=== PATIENT | female | born 1995 | race Caucasian/White ===

== ENCOUNTER 2019-08-24 12:03 | Emergency (ER) | payer OTHER ==
[2019-08-24] MEDS ORDERED: Sodium Chloride 0.9% 10 ML Syringe FLUSH PRN (12:16)
[2019-08-24] MEDS ORDERED: LORazepam 2 MG/ML SDV IVPUSH ONE (12:16)
[2019-08-24] MEDS ORDERED: Lactated Ringers 1,000 ML IV ONE (12:16)
[2019-08-24] MEDS ORDERED: Sodium Chloride 0.9% 2.5 ML Syringe FLUSH PRN (12:16)
--- NOTE | 2019-08-24 12:21 | EDM.PDOC ---
ED [facility] GENERAL MEDICAL PROBLEM - General Chief Complaint: General Stated Complaint: BLURRED VISION; DIZZINESS Time Seen by Provider: 08/24/19 12:04 - History of Present Illness INITIAL COMMENTS - FREE TEXT/NARRATIVE: HISTORY AND PHYSICAL: History of present illness: This 24-year-old female was recently diagnosed with ovarian cancer and had a large resection that was done on August 14 and the patient was discharged on Tuesday. Today she began having some intermittent lightheadedness while standing up, visual changes, but had been wearing a scopolamine patch. She also has increased tenderness in her abdomen. No nausea or vomiting. No reported fevers. No urinary symptoms. Worse with walking. Better with laying down. Review of systems: A 10-point review of systems, other than pertinent positives and negatives as stated per HPI, is otherwise negative. Past medical history: As per history of present illness and as reviewed below otherwise noncontributory. Surgical history: As per history of present illness and as reviewed below otherwise noncontributory. Social history: No reported history of drug or alcohol abuse. Family history: As per history of present illness and as reviewed below otherwise noncon tributory. Physical exam: VITAL SIGNS: Reviewed. GENERAL: Mild distress HEAD: No signs of head trauma. EYES: Pupils are equal. Extraocular motions intact. EARS: Hearing grossly intact. MOUTH: Oropharynx is normal. NECK: No adenopathy, no JVD. CHEST: Chest with clear breath sounds bilaterally. No wheezes, rales, or rhonchi. CARDIAC: Mild tachycardia. Regular rhythm. No discernible murmur. VASCULAR: Peripheral pulses normal and equal in all extremities. ABDOMEN: Soft, mild diffuse tenderness, surgical incision is clean dry and intact. MUSCULOSKELETAL: Good range of motion of all major joints. Extremities without clubbing, cyanosis or edema. NEUROLOGIC EXAM: Alert and oriented x 3. No focal sensory or motor deficits. Speech normal. Follows commands. PSYCHIATRIC: Mood normal. SKIN: No rash or lesions. Initial Differential Diagnosis & Plan: Intra-abdominal abscess, succus leakage, hematoma, seroma, bacteremia Labs to include CBC, complete metabolic panel, lactate, blood cultures, treat her mild nausea with Ativan. She is allergic to phenothiazines and reports that Zofran usually does not work. Definitive disposition and diagnosis as appropriate pending reevaluation and review of above. - Related Data Allergies Allergy/AdvReac Type Severity Reaction Status Date / Time prochlorperazine Allergy Other Verified 08/24/19 12:20 [From Compazine] Home Meds: Home Meds Enoxaparin [Lovenox] 40 mg SUBCUT DAILY 08/24/19 [History] HYDROmorphone [Dilaudid] 2 mg PO ASDIRECTED 08/24/19 [History] ED ROS GENERAL - Review of Systems Review Of Systems: See Below (Noted) ED EXAM, GENERAL - Physical Exam Exam: See Below (Noted as above) Course - Vital Signs Text/Narrative:: I spoke to the surgery team from [facility], specifically the PA, and she was reassured by the exam. The patient has good follow-up and she does not feel that the patient needs to go for immediate follow-up to [place]. I feel that this is reasonable. The CT does not show evidence of intra-abdominal abscess. The patient does have ascites which would be expected after this radical type surgery. There is no other underlying pathology that was unexpected. The surgery team will review this closely. We will provide a CD of the CT scan for their review. I will also fax the records to the surgical office including my note. My diagnostic impression 1. Dizziness likely secondary to scopolamine patch 2. Ascites postoperative likely secondary to normal inflammatory reaction 3. New liver lesion unclear if this represents infection versus malignancy. Given that the patient has no evidence of infectious findings including a normal white count, lack of fever, and no significant tachycardia I do not feel that this represents infection that requires antibiotics at this point. 4. History of ovarian cancer with radical resection in the abdomen. Discharge home follow-up with surgical team and oncology. Last Recorded V/S: Last Vital Signs Temp 97.8 F 08/24/19 12:17 Pulse 82 08/24/19 12:17 Resp 18 08/24/19 12:17 BP 111/78 08/24/19 12:17 Pulse Ox 97 08/24/19 12:17 - Orders/Labs/Meds Orders: Active Orders 24 hr Category Date Time Status Cardiac Monitoring [RC] . DIRECTED Care 08/24/19 12:17 Active Pulse Oximetry [RC] ASDIRECTED Care 08/24/19 12:17 Active CULTURE BLOOD [BC] Stat Lab 08/24/19 12:49 Received CULTURE BLOOD [BC] Stat Lab 08/24/19 12:52 Received Sodium Chloride 0.9% [Saline Flush] Med 08/24/19 12:16 Active 10 ml FLUSH ASDIRECTED PRN Sodium Chloride 0.9% [Saline Flush] Med 08/24/19 12:16 Active 2.5 ml FLUSH ASDIRECTED PRN Blood Culture x2 Reflex Set [OM.PC] Stat Ot 08/24/19 12:17 Ordered Saline Lock Insert [OM.PC] Stat Ot 08/24/19 12:16 Ordered Medication Orders Sodium Chloride (Saline Flush) 10 ml FLUSH ASDIRECTED PRN PRN Reason: Keep Vein Open Last Admin: 08/24/19 12:35 Dose: 10 ml Documented by: MARIIA Sodium Chloride (Saline Flush) 2.5 ml FLUSH ASDIRECTED PRN PRN Reason: Keep Vein Open Last Admin: 08/24/19 12:35 Dose: 2.5 ml Documented by: MARIIA Labs: Laboratory Tests 08/24/19 08/24/19 08/24/19 Range/Units 12:18 12:36 12:36 WBC 8.66 (4.0-11.0) K/uL RBC 4.06 L (4.30-5.90) M/uL Hgb 12.3 (12.0-16.0) g/dL Hct 36.4 (36.0-46.0) % MCV 89.7 (80.0-98.0) fL MCH 30.3 (27.0-32.0) pg MCHC 33.8 (31.0-37.0) g/dL RDW Std Deviation 43.4 (28.0-62.0) fl RDW Coeff of Cori 14 (11.0-15.0) % Plt Count 375 (150-400) K/uL MPV 9.20 (7.40-12.00) fL Neut % (Auto) 66.3 (48.0-80.0) % Lymph % (Auto) 17.4 (16.0-40.0) % [place] % (Auto) 8.2 (0.0-15.0) % Eos % (Auto) 7.6 H (0.0-7.0) % Baso % (Auto) 0.5 (0.0-1.5) % Neut # (Auto) 5.7 (1.4-5.7) K/uL Lymph # (Auto) 1.5 (0.6-2.4) K/uL [place] # (Auto) 0.7 (0.0-0.8) K/uL Eos # (Auto) 0.7 (0.0-0.7) K/uL Baso # (Auto) 0.0 (0.0-0.1) K/uL Nucleated RBC % 0.0 /100WBC Nucleated RBCs # 0 K/uL INR Lactate 0.9 (0.20-2.00) mmol/L Sodium (136-145) mmol/L Potassium (3.5-5.1) mmol/L Chloride (98-107) mmol/L Carbon Dioxide (21.0-32.0) mmol/L BUN (7.0-18.0) mg/dL Creatinine (0.6-1.0) mg/dL Est Cr Clr Drug Dosing mL/min Estimated GFR (MDRD) ml/min Glucose (74-106) mg/dL Calcium (8.5-10.1) mg/dL Total Bilirubin (0.2-1.0) mg/dL AST (15-37) IU/L ALT (14-63) IU/L Alkaline Phosphatase (46-116) U/L Total Protein (6.4-8.2) g/dL Albumin (3.4-5.0) g/dL Globulin (2.6-4.0) g/dL Albumin/Globulin Ratio (0.9-1.6) Urine Color YELLOW Urine Appearance CLEAR Urine pH 6.0 (5.0-8.0) Ur Specific [place] 1.020 (1.001-1.035) Urine Protein NEGATIVE (NEGATIVE) mg/dL Urine Glucose (UA) NEGATIVE (NEGATIVE) mg/dL Urine Ketones NEGATIVE (NEGATIVE) mg/dL Urine Occult Blood NEGATIVE (NEGATIVE) Urine Nitrite NEGATIVE (NEGATIVE) Urine Bilirubin NEGATIVE (NEGATIVE) Urine Urobilinogen 0.2 (<2.0) EU/dL Ur Leukocyte Esterase NEGATIVE (NEGATIVE) 08/24/19 08/24/19 Range/Units 12:36 12:36 WBC (4.0-11.0) K/uL RBC (4.30-5.90) M/uL Hgb (12.0-16.0) g/dL Hct (36.0-46.0) % MCV (80.0-98.0) fL MCH (27.0-32.0) pg MCHC (31.0-37.0) g/dL RDW Std Deviation (28.0-62.0) fl RDW Coeff of Cori (11.0-15.0) % Plt Count (150-400) K/uL MPV (7.40-12.00) fL Neut % (Auto) (48.0-80.0) % Lymph % (Auto) (16.0-40.0) % [place] % (Auto) (0.0-15.0) % Eos % (Auto) (0.0-7.0) % Baso % (Auto) (0.0-1.5) % Neut # (Auto) (1.4-5.7) K/uL Lymph # (Auto) (0.6-2.4) K/uL [place] # (Auto) (0.0-0.8) K/uL Eos # (Auto) (0.0-0.7) K/uL Baso # (Auto) (0.0-0.1) K/uL Nucleated RBC % /100WBC Nucleated RBCs # K/uL INR 1.00 Lactate (0.20-2.00) mmol/L Sodium 143 (136-145) mmol/L Potassium 3.6 (3.5-5.1) mmol/L Chloride 103 (98-107) mmol/L Carbon Dioxide 26.2 (21.0-32.0) mmol/L BUN 9 (7.0-18.0) mg/dL Creatinine 0.8 (0.6-1.0) mg/dL Est Cr Clr Drug Dosing 107.26 mL/min Estimated GFR (MDRD) > 60.0 ml/min Glucose 92 (74-106) mg/dL Calcium 9.3 (8.5-10.1) mg/dL Total Bilirubin 0.6 (0.2-1.0) mg/dL AST 33 (15-37) IU/L ALT 64 H (14-63) IU/L Alkaline Phosphatase 58 (46-116) U/L Total Protein 7.6 (6.4-8.2) g/dL Albumin 3.9 (3.4-5.0) g/dL Globulin 3.7 (2.6-4.0) g/dL Albumin/Globulin Ratio 1.1 (0.9-1.6) Urine Color Urine Appearance Urine pH (5.0-8.0) Ur Specific [place] (1.001-1.035) Urine Protein (NEGATIVE) mg/dL Urine Glucose (UA) (NEGATIVE) mg/dL Urine Ketones (NEGATIVE) mg/dL Urine Occult Blood (NEGATIVE) Urine Nitrite (NEGATIVE) Urine Bilirubin (NEGATIVE) Urine Urobilinogen (<2.0) EU/dL Ur Leukocyte Esterase (NEGATIVE) Meds: Medications Generic Name Dose Route Start Last Admin Trade Name Freq PRN Reason Stop Dose Admin Sodium Chloride 10 ml 08/24/19 12:16 08/24/19 12:35 Saline Flush FLUSH 10 ml ASDIRECTED PRN Administration Keep Vein Open Sodium Chloride 2.5 ml 08/24/19 12:16 08/24/19 12:35 Saline Flush FLUSH 2.5 ml ASDIRECTED PRN Administration Keep Vein Open Discontinued Medications Generic Name Dose Route Start Last Admin Trade Name Freq PRN Reason Stop Dose Admin Lactated Ringer's 1,000 mls @ 999 mls/hr 08/24/19 12:16 08/24/19 12:34 Ringers, Lactated IV 08/24/19 13:16 999 mls/hr .BOLUS ONE Administration Lorazepam 1 mg 08/24/19 12:16 08/24/19 12:35 Ativan IVPUSH 08/24/19 12:17 1 mg ONETIME ONE Administration Departure - Departure Time of Disposition: 15:06 Disposition: Home, Self-Care 01 Condition: Good Clinical Impression: Ascites, Pleural effusion, right, History of ovarian cancer, Liver lesion - Discharge Information *PRESCRIPTION DRUG MONITORING PROGRAM REVIEWED*: Not Applicable *COPY OF PRESCRIPTION DRUG MONITORING REPORT IN PATIENT EFREN: Not Applicable Instructions: Pleural Effusion, Ascites, Ovarian Tumors Referrals: PCP,Not In Area [Primary Care Provider] - Forms: ED Department Discharge Additional Instructions: The following information is given to patients seen in the emergency department who are being discharged to home. This information is to outline your options for follow-up care. We provide all patients seen in our emergency department with a follow-up referral. The need for follow-up, as well as the timing and circumstances, are variable depending upon the specifics of your emergency department visit. If you don't have a primary care physician on staff, we will provide you with a referral. We always advise you to contact your personal physician following an emergency department visit to inform them of the circumstance of the visit and for follow-up with them and/or the need for any referrals to a consulting specialist. The emergency department will also refer you to a specialist when appropriate. This referral assures that you have the opportunity for follow-up care with a specialist. All of these measure are taken in an effort to provide you with optimal care, which includes your follow-up. Thank you for coming to the [facility] urgency department for your care today. It was Dr. Salinas's pleasure to take care of you. Please follow-up with your surgeon as arranged and your oncology team. Please return the emergency department for fever, worsening, or any other concerns. Please make sure to address your new findings with your oncology and surgical team. Under all circumstances we always encourage you to contact your private physician who remains a resource for coordinating your care. When calling for follow-up care, please make the office aware that this follow-up is from your recent emergency room visit. If for any reason you are refused follow-up, please contact the [facility] Emergency Department at and asked to speak to the emergency department charge nurse. Sepsis Event Note (ED) - Focused Exam Vital Signs: Vital Signs Temp Pulse Resp BP Pulse Ox 08/24/19 12:17 97.8 F 82 18 111/78 97 - My Orders Last 24 Hours: My Active Orders 08/24/19 12:16 Sodium Chloride 0.9% [Saline Flush] 10 ml FLUSH ASDIRECTED PRN Sodium Chloride 0.9% [Saline Flush] 2.5 ml FLUSH ASDIRECTED PRN Saline Lock Insert [OM.PC] Stat 08/24/19 12:17 Cardiac Monitoring [RC] . DIRECTED Pulse Oximetry [RC] ASDIRECTED Blood Culture x2 Reflex Set [OM.PC] Stat 08/24/19 12:49 CULTURE BLOOD [BC] Stat 08/24/19 12:52 CULTURE BLOOD [BC] Stat - Assessment/Plan Last 24 Hours: My Active Orders 08/24/19 12:16 Sodium Chloride 0.9% [Saline Flush] 10 ml FLUSH ASDIRECTED PRN Sodium Chloride 0.9% [Saline Flush] 2.5 ml FLUSH ASDIRECTED PRN Saline Lock Insert [OM.PC] Stat 08/24/19 12:17 Cardiac Monitoring [RC] . DIRECTED Pulse Oximetry [RC] ASDIRECTED Blood Culture x2 Reflex Set [OM.PC] Stat 08/24/19 12:49 CULTURE BLOOD [BC] Stat 08/24/19 12:52 CULTURE BLOOD [BC] Stat
[2019-08-24 13:09] LABS: BLOOD UREA NITROGEN,BUN 9 mg/dL (7.0-18.0); CARBON DIOXIDE,CO2 26.2 mmol/L (21.0-32.0); CHLORIDE,CL 103 mmol/L (98-107); GLUCOSE RANDOM 92 mg/dL (74-106); POTASSIUM,K 3.6 mmol/L (3.5-5.1); SODIUM,NA 143 mmol/L (136-145)
--- NOTE | 2019-08-24 14:48 | CT ---
CT abdomen and pelvis Technique: Multiple axial sections were obtained from above the dome of the diaphragm inferiorly through the pubic symphysis. Intravenous contrast was utilized. No oral contrast has been given. Comparison: Previous CT abdomen and pelvis study of 08/06/19. Findings: Small right-sided pleural effusion is seen. Minimal bibasilar atelectasis is noted. Small amount of fluid is seen around the liver and spleen with more confluent ascites within the pelvis. Low density lesion noted within the dome of the right lobe of the liver. This is not appreciated even in retrospect on prior exam. This abnormality measures about 3.7 cm. Since this appears as an interval change from previous exam, difficult to exclude liver metastasis or liver abscess. No additional liver abnormality is appreciated. Spleen appears normal. Adrenal glands show no nodule. Pancreas is within normal limits. Gallbladder shows no calcified gallstones. Adrenal glands show no nodule. Kidneys show symmetric contrast enhancement without hydronephrosis or mass. Aorta shows no aneurysm. No retroperitoneal adenopathy or mesenteric abnormalities are seen. Previous right ovarian mass is no longer seen presumably from previous resection. Bone window settings were reviewed which shows no acute osseous finding. Impression: 1. Small right-sided pleural effusion with mild bibasilar atelectasis. 2. 3.7 cm low density lesion within the dome of the right lobe of the liver not seen on previous CT exams. Difficult to exclude liver metastasis or liver abscess. 3. Mild amount of fluid around the liver and spleen with more confluent ascites within the pelvis. 4. No additional abnormality is appreciated. Diagnostic code #9 This report was dictated in MDT
[2019-08-24] MEDS ORDERED: Iopamidol 755 MG/ML 500 ML Multipack Bottle IVPUSH STA (18:49)
== END 2019-08-24 15:29 | disposition home or self-care (01) ==
LOC: MW.ED 12:03
DX: R18.8 Other ascites (principal); K76.9 Liver disease, unspecified; J90 Pleural effusion, not elsewhere classified; Z85.43 Personal history of malignant neoplasm of ovary; Z88.8 Allergy status to other drugs, medicaments and biological substances; Z79.899 Other long term (current) drug therapy
CPT/HCPCS: 36415; 74177; 80053; 81003; 83605; 85025; 85610; 87040; 96361; 96374; 99284; J2060; J7120; Q9967

== ENCOUNTER 2019-08-30 08:30 | Day surgery (SDC) | payer OTHER ==
[~2019-08-30 08:30] MED LIST: Bupivacaine 0.5% 10 ML SDV ONE; Glycopyrrolate 0.2 MG/ML SDV ONE; Heparin Sodium 100 Units/ML 3 ML Syringe ONE; Iopamidol 200-M 10 ML vial ITHECAL ONE; Ketorolac 30 MG/ML SDV ONE; Lactated Ringers 1,000 ML IV SCH; Lidocaine 2% 5 ML SDV ONE; Midazolam 1 MG/ML 2 ML SDV ONE; Octyl 2-Cyanoacrylate 1 Tube ONE; Ondansetron 4 MG/2 ML SDV ONE; Propofol 200 MG/20 ML SDV ONE; Sodium Chloride 0.9% 10 ML SDV IV PRN; Sodium Chloride 0.9% 10 ML Syringe FLUSH PRN; Sodium Chloride 0.9% 2.5 ML Syringe FLUSH PRN; ceFAZolin 2 GM in Premix Bag 1 BAG IV ONE; fentaNYL 100 MCG/2 ML SDV ONE
--- NOTE | 2019-08-30 08:57 | PCM.PREANE ---
Preanesthetic Assessment - Anesthesia/Transfusion/Family Hx Anesthesia History: Prior Anesthesia Without Reaction Family History of Anesthesia Reaction: No Transfusion History: No Prior Transfusion(s) Intubation History: Unknown - Review of Systems General: No Symptoms Pulmonary: No Symptoms Cardiovascular: No Symptoms Gastrointestinal: No Symptoms Neurological: No Symptoms Other: Reports: None - Physical Assessment Height: 5 ft 7 in Weight: 62.596 kg ASA Class: 2 Mental Status: Alert & Oriented x3 Airway Class: Mallampati = 1 Dentition: Reports: Normal Dentition Thyro-Mental Finger Breadths: 3 Mouth Opening Finger Breadths: 3 ROM/Head Extension: Full Lungs: Clear to Auscultation, Normal Respiratory Effort Cardiovascular: Regular Rate, Regular Rhythm - Allergies Allergies/Adverse Reactions: Allergies Allergy/AdvReac Type Severity Reaction Status Date / Time prochlorperazine Allergy Other Verified 08/27/19 13:16 [From Compazine] - Blood Blood Available: No - Anesthesia Plan Pre-Op Medication Ordered: None - Acknowledgements Anesthesia Type Planned: General Anesthesia Pt an Appropriate Candidate for the Planned Anesthesia: Yes Alternatives and Risks of Anesthesia Discussed w Pt/Guardian: Yes Pt/Guardian Understands and Agrees with Anesthesia Plan: Yes PreAnesthesia Questionnaire HEENT History: Reports: None Cardiovascular History: Reports: None Respiratory History: Reports: None Gastrointestinal History: Reports: None Genitourinary History: Reports: None MUSIC JOURNALIST History: Reports: Other (See Below) Other OB/BYN History: recent diagnosis of ovarian cancer Musculoskeletal History: Reports: None Neurological History: Reports: None Psychiatric History: Reports: None Endocrine/Metabolic History: Reports: None Hematologic History: Reports: Anticoagulation Therapy Immunologic History: Reports: None Oncologic (Cancer) History: Reports: Ovarian Other Oncologic History: Dystoma.... Cancer. Dermatologic History: Reports: None - Past Surgical History Head Surgeries/Procedures: Reports: None HEENT Surgical History: Reports: Tonsillectomy Cardiovascular Surgical History: Reports: None Respiratory Surgical History: Reports: None GI Surgical History: Reports: None Female Surgical History: Reports: Other (See Below) Other Female Surgeries/Procedures: exploratory laparotomy with clair salpingectomy & "1 1/2 ovary removed" in [place] on 08/14/19 Endocrine Surgical History: Reports: None Neurological Surgical History: Reports: None Musculoskeletal Surgical History: Reports: None Oncologic Surgical History: Reports: Other (See Below) Other Oncologic Surgeries/Procedures: exploratory laparotomy 08/14/19 Dermatological Surgical History: Reports: None - SUBSTANCE USE Smoking Status *Q: Never Smoker - HOME MEDS Home Medications: Home Meds Enoxaparin [Lovenox] 40 mg SUBCUT DAILY 08/24/19 [History] HYDROmorphone [Dilaudid] 2 mg PO ASDIRECTED PRN 08/24/19 [History] Acetaminophen [Tylenol Extra Strength] 2 tab PO ASDIRECTED PRN 08/27/19 [History] Ibuprofen 1 tab PO ASDIRECTED PRN 08/27/19 [History] - CURRENT (IN HOUSE) MEDS Current Meds: Current Medications Lactated Ringer's (Ringers, Lactated) 1,000 mls @ 125 mls/hr IV ASDIRECTED GUMARO Sodium Chloride (Saline Flush) 10 ml FLUSH ASDIRECTED PRN PRN Reason: Keep Vein Open Sodium Chloride (Saline Flush) 2.5 ml FLUSH ASDIRECTED PRN PRN Reason: Keep Vein Open Sodium Chloride (Normal Saline) 10 ml IV ASDIRECTED PRN PRN Reason: IV Use Discontinued Medications Bupivacaine HCl (Sensorcaine-Mpf 0.5%) Confirm Administered Dose 10 ml .ROUTE .STK-MED ONE Stop: 08/30/19 07:29 Fentanyl (Sublimaze) Confirm Administered Dose 100 mcg .ROUTE .STK-MED ONE Stop: 08/30/19 07:01 Glycopyrrolate (Robinul) Confirm Administered Dose 0.2 mg .ROUTE .STK-MED ONE Stop: 08/30/19 07:03 Heparin Sodium (Porcine) (Heparin Lock Flush 100 Units/Ml) Confirm Administered Dose 300 unit .ROUTE .STK-MED ONE Stop: 08/30/19 07:30 Cefazolin Sodium/Dextrose 2 gm (/ Premix) 50 mls @ 100 mls/hr IV ONETIME ONE Stop: 08/29/19 10:04 Iopamidol (Isovue-M 200) Confirm Administered Dose 10 ml ITHECAL .STK-MED ONE Stop: 08/30/19 07:30 Ketorolac Tromethamine (Toradol) Confirm Administered Dose 30 mg .ROUTE .STK-MED ONE Stop: 08/30/19 07:03 Lidocaine (Xylocaine-Mpf 2%) Confirm Administered Dose 5 ml .ROUTE .STK-MED ONE Stop: 08/30/19 07:03 Lidocaine HCl (Xylocaine-Mpf 1%) Confirm Administered Dose 10 ml .ROUTE .STK-MED ONE Stop: 08/30/19 07:30 Midazolam HCl (Versed 1 Mg/Ml) Confirm Administered Dose 2 mg .ROUTE .STK-MED ONE Stop: 08/30/19 07:02 Octyl Cyanoacrylate (Dermabond Advance) Confirm Administered Dose 1 applic .ROUTE .STNaHere-MED ONE Stop: 08/30/19 07:30 Ondansetron HCl (Zofran) Confirm Administered Dose 4 mg .ROUTE .STK-MED ONE Stop: 08/30/19 07:03 Propofol (Diprivan 20 Ml) Confirm Administered Dose 200 mg .ROUTE .STNaHere-MED ONE Stop: 08/30/19 07:01
[2019-08-30] MEDS ORDERED: ceFAZolin/Dextrose,Iso-Osmotic 2 GM/50 ML Duplex Bag IV ONE (09:27)
[2019-08-30] MEDS ORDERED: fentaNYL 100 MCG/2 ML SDV IVPUSH PRN (09:27)
[2019-08-30] MEDS ORDERED: Acetaminophen 1,000 MG in Premix Bag 1 BAG IV PRN (09:27)
[2019-08-30] MEDS ORDERED: Dexamethasone 4 MG/ML 5 ML MDV ONE (10:47)
--- NOTE | 2019-08-30 11:45 | PCM.OPNOTE ---
- General Post-Op/Procedure Note Date of Surgery/Procedure: 08/30/19 Operative Procedure(s): Right internal jugular port a cath Findings: Right IJ port Pre Op Diagnosis: Ovarian cancer Post-Op Diagnosis: Ovarian cancer Anesthesia Technique: General LMA Primary Surgeon: Lorraine Mckee Fluid Replacement, Intraop: 1,300 EBL in mLs: 10 Condition: Good
--- NOTE | 2019-08-30 12:23 | PCM.POSTAN ---
POST ANESTHESIA ASSESSMENT - MENTAL STATUS Mental Status: Alert, Oriented - VITAL SIGNS Vital Signs: Last Vital Signs Temp 36.2 C 08/30/19 11:38 Pulse 87 08/30/19 11:59 Resp 14 08/30/19 11:59 BP 109/85 08/30/19 11:59 Pulse Ox 99 08/30/19 11:59 - RESPIRATORY Respiratory Status: Respiratory Rate WNL, Airway Patent, O2 Saturation Stable - CARDIOVASCULAR CV Status: Pulse Rate WNL, Blood Pressure Stable - GASTROINTESTINAL GI Status: No Symptoms - PAIN Pain Score: 0 - POST OP HYDRATION Hydration Status: Adequate & Stable - OBSERVATIONS Free Text/Narrative:: No anesthesia problems
--- NOTE | 2019-08-30 12:36 | CR ---
Chest: Portable view of the chest was obtained. Comparison: No prior chest x-ray, prior chest CT of 08/08/19. Heart size and mediastinum are normal. Right-sided infusion port is seen. Lungs are clear with no acute parenchymal change. Bony structures are grossly intact. Impression: 1. Nothing acute is seen on portable chest x-ray. Diagnostic code #2 This report was dictated in MDT
[2019-08-30] MEDS ORDERED: Heparin Sodium 100 Units/ML 3 ML Syringe ONE (12:38)
--- NOTE | 2019-08-30 12:48 | PCM48HPAN ---
Post Anesthesia Note - EVALUATION WITHIN 48HRS OF ANESTHETIC Vital Signs in Normal Range: Yes Patient Participated in Evaluation: Yes Respiratory Function Stable: Yes Airway Patent: Yes Cardiovascular Function Stable: Yes Hydration Status Stable: Yes Pain Control Satisfactory: Yes Nausea and Vomiting Control Satisfactory: Yes Mental Status Recovered: Yes Vital Signs: Last Vital Signs Temp 36.2 C 08/30/19 11:38 Pulse 87 08/30/19 11:59 Resp 14 08/30/19 11:59 BP 109/85 08/30/19 11:59 Pulse Ox 99 08/30/19 11:59 - COMMENTS/OBSERVATIONS Free Text/Narrative:: No anesthesia problems
--- NOTE | 2019-08-30 16:50 | OR ---
SURGEON: LORRAINE MCKEE MD DATE OF PROCEDURE: 08/30/2019 PREOPERATIVE DIAGNOSIS: Ovarian cancer. POSTOPERATIVE DIAGNOSIS: Ovarian cancer. PROCEDURE PERFORMED: Right internal jugular Port-A-Cath placement. PRIMARY SURGEON: Lorraine Mckee MD ANESTHESIA: General LMA. FLUIDS: 1300 mL of crystalloid. ESTIMATED BLOOD LOSS: 10 mL. FINDINGS: Right internal jugular Port-A-Cath placement. COMPLICATIONS: None. INDICATIONS: The patient is a 24-year-old female who was recently diagnosed with stage III ovarian cancer. The patient will be undergoing chemotherapy and is in need of a centralized access. The patient and I discussed the Port-A-Cath procedure, expected perioperative course, and the risks including bleeding, infection, or damage to surrounding structures including pneumothorax, hemothorax, and/or cardiac tamponade. The patient verbalized understanding and wishes to proceed. PROCEDURE IN DETAIL: The patient was met in the OR and placed on the OR table in supine position. A time-out was completed verifying the patient's name, age, date of , allergies, and procedure to be performed. General LMA anesthesia was induced. I identified the vascular anatomy of the right side of the neck. I identified the right internal jugular vein and the associated right carotid artery. The arms were tucked to the patient's side and a shoulder roll placed under the shoulders. The neck and chest were prepped and draped in usual standard fashion. I reidentified the vascular anatomy of the right side of the neck using a sterile ultrasound probe with the patient placed into Trendelenburg position. I identified the right internal jugular vein. I anesthetized the skin overlying the right internal jugular vein with a 1:1 mixture of 0.5% Marcaine plain and 1% lidocaine plain. I also anesthetized my catheter tubing tract and my port site on the chest wall with the same mixture. Using ultrasound guidance, I placed a guide needle into the right internal jugular vein. I obtained an immediate return of venous blood. A guidewire was placed down the needle into the chest. Fluoroscopy showed that the catheter tubing had went from the right internal jugular vein into the subclavian vein. This was pulled back and guided into the superior vena cava. The guidewire was then secured to the drapes, and I turned my attention to the right upper chest wall. Three fingerbreadths below the right lateral clavicle, I made a 4 cm incision with a 15 blade. Cautery was used to dissect down to the level of subcutaneous fat and a subcutaneous chest wall pocket was then created. A tunneling device was used to tunnel the catheter tubing from the port site up over the clavicle to the guidewire site on the neck. Vascular dilator and sheath were then placed over the guidewire. Using fluoroscopic guidance, I dilated up the vascular tract. The dilator and guidewire were removed, and the catheter tubing was placed down the sheath, into the superior vena cava. The sheath was then peeled away. Using fluoroscopy, I then pulled the catheter tubing back to the level of the atriocaval junction. I aspirated the end of my catheter and obtained a good return of venous blood. X-ray was taken of the catheter tubing in the chest as well as up in the neck. These were saved into the patient's chart. The catheter tubing was then trimmed to fit and placed on the Port-A-Cath device. The port was placed into the chest wall and secured on either side with 2-0 Prolene sutures. It was then aspirated and had a good return of venous blood. It was locked with 4 mL of heparinized saline. The chest wall site was then closed with interrupted 3-0 Vicryl in the subcutaneous fat space and skin was closed with a running 4-0 Monocryl stitch. The neck insertion site was closed with interrupted 4-0 Monocryl suture. Dermabond and sterile dressings were applied. The patient tolerated the procedure well. All counts were complete and correct at the end of the case. She was extubated and taken to PACU in stable condition. A portable chest x-ray will be taken in the PACU. FRANCOISE KWONG /[id number]
--- NOTE | 2019-08-31 09:40 | CR ---
Chest: 2 fluoroscopic spot views were obtained of the chest utilizing C-arm device. Study shows placement of a Port-A-Cath. Tip of the catheter lies near the right atrial and superior vena cava junction. Fluoroscopy time given as 99.9 seconds Impression: 1. Procedural study as described above. Diagnostic code #2 This report was dictated in MDT
== END 2019-08-30 13:10 | disposition home or self-care (01) ==
LOC: MW.SDS 08:30
PROVIDERS: ATTEND Surgery
DX: C56.9 Malignant neoplasm of unspecified ovary (principal); Z88.8 Allergy status to other drugs, medicaments and biological substances
CPT/HCPCS: 36561; 71045; 76000; 81025; A9270; C1788; J0690; J1100; J1642; J1885; J2001; J2250; J2405; J2704; J3490; J7120; J3010; Q9966

== ENCOUNTER 2019-12-01 15:03 | Emergency (ER) | payer OTHER ==
[2019-12-01] MEDS ORDERED: Lidocaine/Prilocaine 2.5-2.5% Crm 5 GM Kit TOP ONE (15:36)
[2019-12-01] MEDS ORDERED: HYDROmorphone 1 MG/ML Syringe IVPUSH ONE (15:44)
[2019-12-01] MEDS ORDERED: Sodium Chloride 0.9% 1,000 ML IV ONE (15:44)
[2019-12-01] MEDS ORDERED: Alum Hydrox/Mag Hydrox/Simeth 15 ML, Metoclopramide 5 MG, Lidocaine 2% 5 ML PO ONE ×3 (15:44)
--- NOTE | 2019-12-01 16:25 | EDM.PDOC ---
ED HPI GENERAL MEDICAL PROBLEM - General Chief Complaint: Abdominal Pain Stated Complaint: ABDOMINAL PAIN Time Seen by Provider: 12/01/19 15:10 Source of Information: Reports: Patient History Limitations: Reports: No Limitations - History of Present Illness INITIAL COMMENTS - FREE TEXT/NARRATIVE: Presents with her mother reporting epigastric and chest pain. This unfortunate 22-year-old patient has stage III ovarian cancer. Underwent salpingectomy, oophorectomy, partial omenectomy. In August 2019 she started 4 cycles of chemotherapy, last on TuesdayNovember 25. She is saw her oncology providers on Tuesday, November 27 she was diagnosed with GERD after complaining of chest pain. Blood cultures were obtained. On , November 28 had a negative COVID-19 test. She reports that "saliva stanton all the way down", sharp burning pain midline chest and epigastric area, mouth sores. She has tried Mylanta, Gracie-Heavener. She vomited once a couple days ago but none since and has no nausea. He has been trying to keep hydrated, has eaten little food. She has Ativan and hydrocodone at home. Dr. Wells is her supervising oncologist at the [facility] cancer treatment center here in [place] where she receives her chemotherapy. Her mother Celine has been on speaker phone throughout the entire interview. abdomen Pain Score (Numeric/FACES): 8 - Related Data Allergies Allergy/AdvReac Type Severity Reaction Status Date / Time prochlorperazine Allergy Other Verified 12/01/19 15:28 [From Compazine] Home Meds: Home Meds Enoxaparin [Lovenox] 40 mg SUBCUT DAILY 08/24/19 [History] HYDROmorphone [Dilaudid] 2 mg PO ASDIRECTED PRN 08/24/19 [History] Acetaminophen [Tylenol Extra Strength] 2 tab PO ASDIRECTED PRN 08/27/19 [History] Ibuprofen 1 tab PO ASDIRECTED PRN 08/27/19 [History] HYDROmorphone [Dilaudid] 0.5 tab PO Q4H PRN 7 Days #20 tab 12/01/19 [Rx] Past Medical History HEENT History: Reports: None Cardiovascular History: Reports: None Respiratory History: Reports: None Gastrointestinal History: Reports: None Genitourinary History: Reports: None [employer] ADVIS[employer] History: Reports: Other (See Below) 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 Cancer. Dermatologic History: Reports: None - Past Surgical History Head Surgeries/Procedures: Reports: None HEENT Surgical History: Reports: Tonsillectomy Cardiovascular Surgical History: Reports: None Respiratory Surgical History: Reports: None GI Surgical History: Reports: None Female Surgical History: Reports: Other (See Below) Other Female Surgeries/Procedures: exploratory laparotomy with clair salpingectomy & "1 1/2 ovary removed" in [place] on 08/14/19 Endocrine Surgical History: Reports: None Neurological Surgical History: Reports: None Musculoskeletal Surgical History: Reports: None Oncologic Surgical History: Reports: Other (See Below) Other Oncologic Surgeries/Procedures: exploratory laparotomy 08/14/19 Dermatological Surgical History: Reports: None Social & Family History - Family History Family Medical History: Noncontributory - Tobacco Use Second Hand Smoke Exposure: No - Recreational Drug Use Recreational Drug Use: No ED ROS GENERAL - Review of Systems Review Of Systems: Comprehensive ROS is negative, except as noted in HPI. Constitutional: Reports: No Symptoms. Denies: Fever, Chills HEENT: Reports: No Symptoms Respiratory: Reports: No Symptoms. Denies: Shortness of Breath, Wheezing, Cough Cardiovascular: Reports: Chest Pain Endocrine: Reports: No Symptoms GI/Abdominal: Reports: Abdominal Pain (epigastric), Constipation (BM over 3 days ago) : Reports: No Symptoms Musculoskeletal: Reports: No Symptoms Skin: Reports: No Symptoms Neurological: Reports: No Symptoms Psychiatric: Reports: No Symptoms, Anxiety Hematologic/Lymphatic: Reports: No Symptoms Immunologic: Reports: No Symptoms ED EXAM, GI/ABD - Physical Exam Exam: See Below Exam Limited By: No Limitations General Appearance: Alert, No Apparent Distress Ears: Normal External Exam, Normal Canal, Normal TMs Nose: Normal Inspection Throat/Mouth: Normal Inspection, Normal Teeth, Other (Mild irritation posterior pharynx, no oral lesions, tissue in good repair) Neck: Normal Inspection, Lymphadenopathy (L) (Mild tenderness), Lymphadenopathy (R) (mild Tenderness) Respiratory/Chest: No Respiratory Distress, Lungs Clear, Normal Breath Sounds Cardiovascular: Normal Peripheral Pulses, Regular Rate, Rhythm, No Murmur GI/Abdominal Exam: Normal Bowel Sounds, Soft, Other (mild Epigastric) Back Exam: Normal Inspection Extremities: Normal Inspection Neurological: Alert, Oriented, Normal Cognition Psychiatric: Normal Affect, Normal Mood Skin Exam: Warm, Dry, Intact, No Rash, Other (Pale, chemotherapy-induced alopecia) Lymphatic: No Adenopathy #1 Interpretation EKG Date: 12/01/19 Rhythm: NSR [place]: Normal P-Wave: Present QRS: Normal ST-T: Normal QT: Prolonged (494) Comparison: NA - No Prior EKG Course - Vital Signs Last Recorded V/S: Last Vital Signs Temp 37.5 C 12/01/19 15:21 Pulse 85 12/01/19 18:40 Resp 16 12/01/19 18:40 BP 97/55 L 12/01/19 18:40 Pulse Ox 100 12/01/19 18:40 - Orders/Labs/Meds Orders: Active Orders 24 hr Category Date Time Status EKG 12 Lead [EKG Documentation Completion] [RC] STAT Care 12/01/19 15:43 Active Labs: Laboratory Tests 12/01/19 12/01/19 Range/Units 16:13 16:13 WBC 2.50 L (4.0-11.0) K/uL RBC 2.39 L (4.30-5.90) M/uL Hgb 7.2 L (12.0-16.0) g/dL Hct 20.3 L (36.0-46.0) % MCV 84.9 (80.0-98.0) fL MCH 30.1 (27.0-32.0) pg MCHC 35.5 (31.0-37.0) g/dL RDW Std Deviation 44.6 (28.0-62.0) fl RDW Coeff of Croi 14 (11.0-15.0) % Plt Count 78 L (150-400) K/uL MPV 10.30 (7.40-12.00) fL Neut % (Auto) 59.6 (48.0-80.0) % Lymph % (Auto) 26.0 (16.0-40.0) % [place] % (Auto) 12.4 (0.0-15.0) % Eos % (Auto) 0.4 (0.0-7.0) % Baso % (Auto) 1.6 H (0.0-1.5) % Neut # (Auto) 1.5 (1.4-5.7) K/uL Lymph # (Auto) 0.7 (0.6-2.4) K/uL [place] # (Auto) 0.3 (0.0-0.8) K/uL Eos # (Auto) 0.0 (0.0-0.7) K/uL Baso # (Auto) 0.0 (0.0-0.1) K/uL Nucleated RBC % 0.0 /100WBC Nucleated RBCs # 0 K/uL Sodium 135 L (136-145) mmol/L Potassium 3.4 L (3.5-5.1) mmol/L Chloride 99 (98-107) mmol/L Carbon Dioxide 28.0 (21.0-32.0) mmol/L BUN 13 (7.0-18.0) mg/dL Creatinine 0.8 (0.6-1.0) mg/dL Est Cr Clr Drug Dosing 103.47 mL/min Estimated GFR (MDRD) > 60.0 ml/min Glucose 87 (74-106) mg/dL Calcium 9.1 (8.5-10.1) mg/dL Total Bilirubin 0.7 (0.2-1.0) mg/dL AST 13 L (15-37) IU/L ALT 19 (14-63) IU/L Alkaline Phosphatase 57 (46-116) U/L Troponin I < 0.050 (0.000-0.056) ng/mL Total Protein 6.9 (6.4-8.2) g/dL Albumin 3.8 (3.4-5.0) g/dL Globulin 3.1 (2.6-4.0) g/dL Albumin/Globulin Ratio 1.2 (0.9-1.6) Meds: Medications Discontinued Medications Generic Name Dose Route Start Last Admin Trade Name Freq PRN Reason Stop Dose Admin Al Hydroxide/Mg Hydroxide 15 0 ml 12/01/19 15:44 12/01/19 16:16 ml/ Metoclopramide HCl 5 mg/ PO 12/01/19 15:45 1 each Lidocaine HCl 5 ml ONETIME ONE Administration Al Hydroxide/Mg Hydroxide 15 0 ml 12/01/19 18:22 12/01/19 19:05 ml/ Lidocaine HCl 5 ml PO 12/01/19 18:23 1 each ONETIME ONE Administration Hydromorphone HCl 1 mg 12/01/19 15:44 12/01/19 16:18 Dilaudid IVPUSH 12/01/19 15:45 1 mg ONETIME ONE Administration Sodium Chloride 1,000 mls @ 999 mls/hr 12/01/19 15:44 12/01/19 16:15 Normal Saline IV 12/01/19 16:44 999 mls/hr STAT ONE Administration Lidocaine/Prilocaine 1 gm 12/01/19 15:36 12/01/19 15:38 E[facility]a C[facility] TOP 12/01/19 15:37 1 gm ONETIME ONE Administration Lorazepam 1 mg 12/01/19 18:24 12/01/19 18:38 Ativan IVPUSH 12/01/19 18:25 1 mg ONETIME ONE Administration Ondansetron HCl 4 mg 12/01/19 16:49 12/01/19 17:04 Zofran IVPUSH 12/01/19 16:50 4 mg ONETIME ONE Administration - Re-Assessments/Exams Free Text/Narrative Re-Assessment/Exam: 12/01/19 1840 states that the GI cocktail helped and the Dilaudid helped. She is concerned about home as just taking a swallow of a smoothie caused burning pain down her chest and into her epigastric area. She states that at home a combination of Zofran and Ativan helps her nausea. Since we just gave her an Zofran she would like some Ativan. We will then give her another dose of cocktail and try oral fluids to be certain that she keeps them down. She is quite anemic status post chemotherapy. She states that she will follow up with oncology on Tuesday morning for possible transfusion. Free Text/Narrative Re-Assessment/Exam: 12/01/19 19:44 She states she is feeling much better now and is ready to go home. She milton erated the oral fluids after the GI cocktail and has not been nauseated since the Ativan. Departure - Departure Time of Disposition: 19:45 Disposition: Home, Self-Care 01 Condition: Fair Clinical Impression: Esophagitis Gastritis Qualifiers: Gastritis type: unspecified gastritis Chronicity: unspecified - Discharge Information Prescriptions: HYDROmorphone [Dilaudid] 0.5 tab PO Q4H PRN 7 Days #20 tab PRN Reason: Pain (Severe 7-10) Referrals: PCP,None [Primary Care Provider] - Forms: ED Department Discharge Additional Instructions: The following information is given to patients seen in the emergency department who are being discharged to home. This information is to outline your options for follow-up care. We provide all patients seen in our emergency department with a follow-up referral. The need for follow-up, as well as the timing and circumstances, are variable depending upon the specifics of your emergency department visit. If you don't have a primary care physician on staff, we will provide you with a referral. We always advise you to contact your personal physician following an emergency department visit to inform them of the circumstance of the visit and for follow-up with them and/or the need for any referrals to a consulting spe cialist. The emergency department will also refer you to a specialist when appropriate. This referral assures that you have the opportunity for follow-up care with a specialist. All of these measure are taken in an effort to provide you with optimal care, which includes your follow-up. Under all circumstances we always encourage you to contact your private physician who remains a resource for coordinating your care. When calling for follow-up care, please make the office aware that this follow-up is from your recent emergency room visit. If for any reason you are refused follow-up, please contact the [facility] Emergency Department at and asked to speak to the emergency department charge nurse. 1. Please call oncology on Tuesday morning to discuss your anemia treatment. 2. For esophageal/gastric pain: Premedicate with Ativan and Zofran. Then, take a dose of GI cocktail. 3. Drink plenty of cool fluids including electrolyte solutions as your potassium was a little low. 4. Return promptly for vomiting and not keeping down oral fluids, chest and abdominal pain not controlled by above measures Sepsis Event Note (ED) - Evaluation Sepsis Screening Result: No Definite Risk - Focused Exam Vital Signs: Vital Signs Temp Pulse Resp BP Pulse Ox 12/01/19 18:40 85 16 97/55 L 100 12/01/19 16:05 95 17 104/74 99 12/01/19 15:21 37.5 C 106 H 16 129/59 L 100 - My Orders Last 24 Hours: My Active Orders 12/01/19 15:43 EKG 12 Lead [EKG Documentation Completion] [RC] STAT - Assessment/Plan Last 24 Hours: My Active Orders 12/01/19 15:43 EKG 12 Lead [EKG Documentation Completion] [RC] STAT
[2019-12-01 16:49] LABS: BLOOD UREA NITROGEN,BUN 13 mg/dL (7.0-18.0); CHLORIDE,CL 99 mmol/L (98-107); GLUCOSE RANDOM 87 mg/dL (74-106); POTASSIUM,K 3.4 mmol/L (3.5-5.1); SODIUM,NA 135 mmol/L (136-145)
[2019-12-01] MEDS ORDERED: Ondansetron 4 MG/2 ML SDV IVPUSH ONE (16:49)
--- NOTE | 2019-12-01 17:17 | CR ---
INDICATION: Epigastric pain TECHNIQUE: X-ray abdomen, two views and a single view of the chest. COMPARISON: Chest x-ray 11/29/2019 FINDINGS: The heart is normal in size. The lungs are clear. There is a stable right sided chest port. No free air is visualized below the diaphragms. There is a small amount of retained stool throughout the colon. No dilated loops of small bowel are seen to suggest obstruction. No air-fluid levels. The visualized bones are unremarkable. IMPRESSION: 1. Nonobstructed bowel-gas pattern. 2. Negative for acute cardiopulmonary process. Dictated by Barb Cortes MD @ Dec 01 2019 5:12PM Signed by Dr. Barb Cortes @ Dec 01 2019 5:16PM
[2019-12-01] MEDS ORDERED: Alum Hydrox/Mag Hydrox/Simeth 15 ML, Lidocaine 2% 5 ML PO ONE ×2 (18:22)
[2019-12-01] MEDS ORDERED: LORazepam 2 MG/ML SDV IVPUSH ONE (18:24)
--- NOTE | 2019-12-03 13:25 | PCM.SN.2 ---
#1 Interpretation EKG Date: 12/01/19 Time: 15:53 Rhythm: Other (Sinus tachycardia) Rate (Beats/Min): 104 [place]: Normal P-Wave: Present QRS: Normal ST-T: Other (T-wave inversions in III and V3) QT: Normal (474 msec by manual calculation) EKG Interpretation Comments: No acute ischemia.
== END 2019-12-01 20:22 | disposition home or self-care (01) ==
LOC: MW.ED 15:03
DX: K29.70 Gastritis, unspecified, without bleeding (principal); K20.90 Esophagitis, unspecified without bleeding; Z88.8 Allergy status to other drugs, medicaments and biological substances; Z79.01 Long term (current) use of anticoagulants
CPT/HCPCS: 36415; 74022; 80053; 84484; 85025; 93005; 96374; 96375; 99285; A9270; J1170; J2060; J2405; J7030; 93010; 99284

== ENCOUNTER 2021-08-16 04:18 | Emergency (ER) | payer BC ==
[2021-08-16 05:07] LABS: BLOOD UREA NITROGEN,BUN 14 mg/dL (7.0-18.0); CHLORIDE,CL 102 mmol/L (98-107); GLUCOSE RANDOM 94 mg/dL (74-106); POTASSIUM,K 3.8 mmol/L (3.5-5.1); SODIUM,NA 134 mmol/L (136-145)
[2021-08-16 05:14] LABS: ESTIMATED GFR 128 mL/min (>60)
[2021-08-16] MEDS ORDERED: Iopamidol 755 MG/ML 500 ML Multipack Bottle IVPUSH STA (07:49)
== END 2021-08-16 08:51 | disposition home or self-care (01) ==
LOC: MW.ED 04:18
DX: O99.891 Other specified diseases and conditions complicating pregnancy (principal); R07.9 Chest pain, unspecified; Z3A.14 14 weeks gestation of pregnancy; Z88.8 Allergy status to other drugs, medicaments and biological substances
CPT/HCPCS: 36415; 71045; 71275; 80053; 85025; 93005; 93970; 99285; Q9967; 93010; 99284

== ENCOUNTER 2022-02-14 00:12 | Inpatient (IN) | payer MEDICAID ==
[2022-02-14] MEDS ORDERED: Methylergonovine 0.2 MG/1 ML Amp IM PRN (01:41)
[2022-02-14] MEDS ORDERED: Water For Irrigation,Sterile 1,000 ML Container IRR PRN (01:41)
[2022-02-14] MEDS ORDERED: Sodium Chloride 0.9% 10 ML Syringe FLUSH PRN (01:41)
[2022-02-14] MEDS ORDERED: Sodium Chloride 0.9% 20 ML SDV IV PRN (01:41)
[2022-02-14] MEDS ORDERED: Sodium Chloride 0.9% 2.5 ML Syringe FLUSH PRN (01:41)
[2022-02-14] MEDS ORDERED: Misoprostol 200 MCG Tab PO PRN (01:41)
[2022-02-14] MEDS ORDERED: Lidocaine 1% 50 ML MDV INJECT PRN (01:41)
[2022-02-14] MEDS ORDERED: Ondansetron 4 MG/2 ML SDV IVPUSH PRN (01:41)
[2022-02-14] MEDS ORDERED: Terbutaline 1 MG/ML SDV SUBCUT PRN (01:41)
[2022-02-14] MEDS ORDERED: Carboprost Tromethamine 250 MCG/1 ML Amp IM PRN (01:41)
[2022-02-14] MEDS ORDERED: Tranexamic Acid 1,000 MG in Sodium Chloride 0.9% 100 ML IV PRN (01:41)
[2022-02-14] MEDS ORDERED: Butorphanol 1 MG/ML SDV IVPUSH PRN (01:41)
[2022-02-14] MEDS ORDERED: Oxytocin/0.9 % Sodium Chloride 30 UNIT/500 ML BAG IV SCH ×2 (01:45)
[2022-02-14] MEDS ORDERED: Misoprostol 25 MCG (1/4 of 100 MCG) Tab VAG PRN ×2 (03:00→07:00)
[2022-02-14] MEDS ORDERED: Phenylephrine HCl In 0.9% NaCl 1 MG/10 ML Vial IVPUSH PRN (16:34)
[2022-02-14] MEDS ORDERED: ePHEDrine 50 MG/ML SDV IVPUSH PRN ×2 (16:34)
[2022-02-14] MEDS ORDERED: Ropivacaine HCl/PF 400 MG in Premix Bag 1 BAG EPIDUR SCH (16:45)
[2022-02-14] MEDS ORDERED: Phenylephrine HCl In 0.9% NaCl 1 MG/10 ML Vial IVPUSH SCH (16:45)
[2022-02-14] MEDS: Lactated Ringers 1,000 ML IV SCH ×2 (17:05→19:00)
[2022-02-14] MEDS ORDERED: Bupivacaine 0.5% 10 ML SDV ONE (18:32)
[2022-02-14] MEDS ORDERED: Ropivacaine/PF 400 MG/200 ML PCA ONE (18:32)
[2022-02-15] MEDS ORDERED: Tranexamic Acid 1,000 MG/10 ML Vial ONE (01:44)
[2022-02-15] MEDS ORDERED: Benzocaine/Menthol 20%-0.5% Spray 78 GM Cannister TOP PRN (01:57)
[2022-02-15] MEDS ORDERED: Acetaminophen 500 MG Tab PO PRN (01:57)
[2022-02-15] MEDS ORDERED: Lanolin 100% Cream 7 GM Tube TOP PRN (01:57)
[2022-02-15] MEDS ORDERED: Witch Hazel Medicated Pads 40/Jar TOP PRN (01:57)
[2022-02-15] MEDS ORDERED: Aluminum Hydroxide/Magnesium Hydroxide/Simethicone XS Susp 30 ML Cup PO PRN (01:57)
[2022-02-15] MEDS ORDERED: oxyCODONE 5 MG Tab PO PRN (01:57)
[2022-02-15] MEDS ORDERED: Bisacodyl 10 MG Supp RECTAL PRN (01:57)
[2022-02-15] MEDS ORDERED: Ibuprofen 400 MG Tab PO PRN (01:57)
[2022-02-15] MEDS: Lactated Ringers 1,000 ML IV SCH (02:15)
[2022-02-15 03:15] LABS: CARBON DIOXIDE,CO2 22.8 mmol/L (21.0-32.0)
[2022-02-15] MEDS: Ibuprofen 800 MG Tab PO PRN (09:37)
[2022-02-15] MEDS: Acetaminophen 500 MG Tab PO PRN (09:37)
[2022-02-16] MEDS: Docusate Sodium 100 MG Cap PO PRN ×2 (03:30→16:08)
[2022-02-16] MEDS: Acetaminophen 500 MG Tab PO PRN (03:30)
[2022-02-16] MEDS ORDERED: Sodium Ferric Gluconate Cmplex 125 MG in Sodium Chloride 0.9% 100 ML IV ONE (10:00)
[2022-02-16] MEDS ORDERED: Sodium Chloride 0.9% 250 ML IV SCH (11:00)
[2022-02-16] MEDS: Ibuprofen 800 MG Tab PO PRN (16:08)
== END 2022-02-16 21:00 | disposition home or self-care (01) | DRG 806 ==
LOC: MW.OBCHECK 00:12 → MW.OB 00:13 → MW.OBCHECK 01:41 → MW.OB 01:42 → OBSVTOIN 02-15 01:13 → MW.OB 02-15 12:47
PROVIDERS: ADMIT Obstetrics & Gynecology; ATTEND Obstetrics & Gynecology
PROC: 10E0XZZ Delivery of Products of Conception, External Approach (ICD-10-PCS; principal; 2022-02-15)
PROC: 0HQ9XZZ Repair Perineum Skin, External Approach (ICD-10-PCS; 2022-02-15)
PROC: 3E0R3BZ Introduction of Anesthetic Agent into Spinal Canal, Percutaneous Approach (ICD-10-PCS; 2022-02-15)
PROC: 3E0P7VZ Introduction of Hormone into Female Reproductive, Via Natural or Artificial Opening (ICD-10-PCS; 2022-02-15)
DX: O48.0 Post-term pregnancy (principal); O72.1 Other immediate postpartum hemorrhage; Z37.0 Single live birth; Z3A.40 40 weeks gestation of pregnancy; O70.0 First degree perineal laceration during delivery; Z88.8 Allergy status to other drugs, medicaments and biological substances; Z20.822 Contact with and (suspected) exposure to COVID-19; Z87.440 Personal history of urinary (tract) infections; Z90.89 Acquired absence of other organs; Z98.890 Other specified postprocedural states; Z85.43 Personal history of malignant neoplasm of ovary
CPT/HCPCS: 01967; 36415; 51702; 59025; 59409; 80053; 85014; 85018; 85027; 85384; 85610; 86592; 86850; 86900; 86901; 86920; A9270-GY; J0595; J2210; J2405; J2590; J2795; J2916; J3490; J7120; U0002